=== PATIENT | female | born 1980 | race Caucasian/White ===

== ENCOUNTER 2016-08-10 09:05 | Outpatient (CLI) | payer OTHER | END 2016-08-10 11:59 | disposition home or self-care (01) | LOC: GENOP 09:05 | DX: O42.913 Preterm premature rupture of membranes, unspecified as to length of time between rupture and onset of labor, third trimester (principal); Z3A.36 36 weeks gestation of pregnancy; R10.9 Unspecified abdominal pain | CPT/HCPCS: G0463 ==

== ENCOUNTER 2016-08-18 00:17 | Outpatient (CLI) | payer OTHER | END 2016-08-18 04:39 | disposition home or self-care (01) | LOC: GENOP 00:17 | DX: O99.89 Other specified diseases and conditions complicating pregnancy, childbirth and the puerperium (principal); R10.9 Unspecified abdominal pain; Z3A.37 37 weeks gestation of pregnancy | CPT/HCPCS: 96360; G0463; J7120 ==

== ENCOUNTER 2016-08-18 10:40 | Outpatient (CLI) | payer OTHER | END 2016-08-18 18:01 | disposition home or self-care (01) | LOC: GENOP 10:40 | DX: O99.89 Other specified diseases and conditions complicating pregnancy, childbirth and the puerperium (principal); R10.9 Unspecified abdominal pain; Z3A.37 37 weeks gestation of pregnancy | CPT/HCPCS: 96360; 96361; 96365; J7120 ==

== ENCOUNTER 2016-08-31 16:19 | Inpatient (IN) | payer OTHER ==
[~2016-08-31] VITALS: Ht 180.3 cm; Wt 124.3 kg
[2016-08-31 17:44] LABS: HEMOGLOBIN 9.6 gm/dl (12.3-15.3); RED BLOOD COUNT 3.87 M/UL (4.00-5.10); WHITE BLOOD COUNT 15.3 K/UL (4.5-11.0)
[2016-09-02 03:56] LABS: HEMOGLOBIN 9.2 gm/dl (12.3-15.3)
[2016-09-02] MEDS ORDERED: COLACE100 MG PO (13:43)
[2016-09-02] MEDS ORDERED: IBUPROFEN600 MG PO (13:43)
== END 2016-09-02 14:07 | disposition home or self-care (01) | DRG 774 ==
LOC: GENOP 16:19 → OB 16:30
PROVIDERS: Obstetrics & Gynecology; ADMIT Obstetrics & Gynecology
PROC: 0U7C7ZZ Dilation of Cervix, Via Natural or Artificial Opening (ICD-10-PCS; principal; 2016-08-31)
PROC: 10H07YZ Insertion of Other Device into Products of Conception, Via Natural or Artificial Opening (ICD-10-PCS; 2016-09-01)
PROC: 4A1H7CZ Monitoring of Products of Conception, Cardiac Rate, Via Natural or Artificial Opening (ICD-10-PCS; 2016-09-01)
PROC: 3E033VJ Introduction of Other Hormone into Peripheral Vein, Percutaneous Approach (ICD-10-PCS; 2016-09-01)
PROC: 10907ZC Drainage of Amniotic Fluid, Therapeutic from Products of Conception, Via Natural or Artificial Opening (ICD-10-PCS; 2016-09-01)
PROC: 10E0XZZ Delivery of Products of Conception, External Approach (ICD-10-PCS; 2016-09-01)
DX: O98.82 Other maternal infectious and parasitic diseases complicating childbirth (principal); O98.32 Other infections with a predominantly sexual mode of transmission complicating childbirth; B95.1 Streptococcus, group B, as the cause of diseases classified elsewhere; Z3A.38 38 weeks gestation of pregnancy; Z37.0 Single live birth; M54.9 Dorsalgia, unspecified; O75.89 Other specified complications of labor and delivery; O99.344 Other mental disorders complicating childbirth; F41.9 Anxiety disorder, unspecified; O99.284 Endocrine, nutritional and metabolic diseases complicating childbirth; E03.9 Hypothyroidism, unspecified; E28.2 Polycystic ovarian syndrome; O09.523 Supervision of elderly multigravida, third trimester; O26.813 Pregnancy related exhaustion and fatigue, third trimester; Z87.891 Personal history of nicotine dependence; Z88.0 Allergy status to penicillin; Z88.8 Allergy status to other drugs, medicaments and biological substances; O16.4 Unspecified maternal hypertension, complicating childbirth; A63.0 Anogenital (venereal) warts; Z83.2 Family history of diseases of the blood and blood-forming organs and certain disorders involving the immune mechanism; Z81.8 Family history of other mental and behavioral disorders; Z82.49 Family history of ischemic heart disease and other diseases of the circulatory system; Z83.49 Family history of other endocrine, nutritional and metabolic diseases; Z83.3 Family history of diabetes mellitus; Z84.89 Family history of other specified conditions; Z91.040 Latex allergy status; Z28.21 Immunization not carried out because of patient refusal
CPT/HCPCS: 36415; 51702; 81001; 82803; 85014; 85018; 85025; J2590; J2795; J3430; J7120

== ENCOUNTER 2020-11-05 12:37 | Emergency (ER) | payer OTHER ==
[~2020-11-05 12:37] MED LIST: COLACE100 MG PO; IBUPROFEN600 MG PO; LODINE CAP 300300 MG PO; NAPROSYN500 MG PO; VALIUM5 MG PO; ZOFRAN ODT 4 MG4 MG PO
[2020-11-05 13:42] LABS: HEMOGLOBIN 12.7 gm/dl (12.3-15.3); RED BLOOD COUNT 4.32 M/UL (4.00-5.10); WHITE BLOOD COUNT 11.9 K/UL (4.5-11.0)
[2020-11-05 14:37] LABS: BUN/CREATININE RATIO 8 (0-10)
[2020-11-05] MEDS ORDERED: K-TAB ER20 MEQ PO (15:17)
[2020-11-05] MEDS ORDERED: ZOFRAN ODT 4 MG4 MG PO (15:17)
== END 2020-11-05 15:25 | disposition home or self-care (01) ==
LOC: ER1 12:37
PROVIDERS: Family Medicine
DX: R11.2 Nausea with vomiting, unspecified (principal); I10 Essential (primary) hypertension; E87.6 Hypokalemia; R94.5 Abnormal results of liver function studies; Z88.1 Allergy status to other antibiotic agents; Z79.899 Other long term (current) drug therapy
CPT/HCPCS: 80053; 81001; 83690; 84703; 85025; 93005; 96374; 99284; J2405

== ENCOUNTER → 2021-12-13 | Outpatient (CLI) | payer OTHER ==
[~2021-12-13] MED LIST changes: +K-TAB ER20 MEQ PO
== END ==
LOC: EXRD 12-01 09:00
DX: K76.0 Fatty (change of) liver, not elsewhere classified (principal)
CPT/HCPCS: 76705

== ENCOUNTER → 2022-01-13 | Outpatient (CLI) | payer OTHER | LOC: NM 01-06 09:00 | DX: R10.11 Right upper quadrant pain (principal) | CPT/HCPCS: 78227; A9537 ==

== ENCOUNTER 2022-02-06 22:10 | Emergency (ER) | payer OTHER | END 2022-02-07 00:30 | disposition left against medical advice (07) | LOC: ER1 22:10 | DX: S09.90XA Unspecified injury of head, initial encounter (principal); S09.93XA Unspecified injury of face, initial encounter; S49.91XA Unspecified injury of right shoulder and upper arm, initial encounter; Z88.0 Allergy status to penicillin; Y09 Assault by unspecified means | CPT/HCPCS: 70450; 70486; 71046; 72125; 72131; 73030; 73564; 99281 ==